=== PATIENT | male | born 1985 | race Caucasian/White ===

== ENCOUNTER 2018-04-21 12:17 | Emergency (ER) | payer OTHER ==
[~2018-04-21] VITALS: Ht 177.8 cm; Wt 106.1 kg
[2018-04-21] MEDS ORDERED: LOSARTAN POTASS25 MG (13:40)
[2018-04-21] MEDS ORDERED: HYDROCHLOROTH12.5 MG (13:41)
[2018-04-21] MEDS ORDERED: TOPROL XL25 MG (13:42)
[2018-04-21] MEDS ORDERED: VISTARIL50 MG PO (16:11)
== END 2018-04-21 17:08 ==
LOC: ER 12:17
DX: R00.2 Palpitations (principal); F41.8 Other specified anxiety disorders